=== PATIENT | male | born 1930 | race Caucasian/White ===

== ENCOUNTER 2022-10-13 14:18 | Emergency (ER) | payer MEDICARE ==
[2022-10-13] MEDS ORDERED: Sodium Chloride 0.9% 1,000 ML ONE ×2 (15:00→17:16)
[2022-10-13] MEDS ORDERED: Ondansetron PF 4 MG/2 ML Vial ONE (15:00)
[2022-10-13] MEDS ORDERED: Bisacodyl 10 MG SUPP ONE (15:00)
[2022-10-13] MEDS ORDERED: Morphine 4 MG/ML VIAL ONE ×2 (15:00→17:16)
[2022-10-13 15:16] LABS: #Basophils 0.1 thou/uL (0.0-0.2); #Monocytes 0.4 thou/uL (0.11-0.59); #Neutrophils 8.5 thou/uL (1.40-6.50); %Basophils 0.5 % (0.0-1.0); %Eosinophils 0.2 % (0.0-10.0); %Lymphocytes 9.5 % (21.0-51.0); %Monocytes 4.4 % (0.0-10.0); %Neutrophils 85.3 % (42.0-75.0); Hemoglobin 12.3 g/dL (14.0-18.0); Mean Corpuscular HGB CONC 31.8 g/dL (32.0-36.0); Mean Corpuscular Hemoglobin 26.8 pg (27.0-31.0); Mean Corpuscular Volume 84.3 fl (78.0-98.0); Mean Platelet Volume 7.8 fL (7.4-10.4); Platelet Count 295 10x3/uL (130-400); Red Blood Cell (RBC) Count 4.58 mill/uL (4.70-6.10)
[2022-10-13 15:31] LABS: ALT (SGPT) 26 U/L (8-55); AST (SGOT) 53 U/L (5-34); Albumin 3.2 g/dL (3.4-4.8); Alkaline Phosphatase 249 U/L (40-110); Anion Gap 17 mmol/L (10-20); BUN (Urea Nitrogen) 35 mg/dL (8.4-25.7); Bilirubin, Total 0.7 mg/dL (0.2-1.2); Calc. Creatinine Clearance 0 mL/min (70-130); Calcium 10.6 mg/dL (7.8-10.44); Carbon Dioxide 21 mmol/L (23-31); Chloride 104 mmol/L (98-107); Estimated GFR 40; Globulin 3.1 g/dL (2.4-3.5); Glucose 157 mg/dL (83-110); Lipase 79 U/L (8-78); Potassium 4.4 mmol/L (3.5-5.1); Protein, Total 6.3 g/dL (5.8-8.1); Sodium 138 mmol/L (136-145)
[2022-10-13] MEDS ORDERED: Mineral Oil ENEMA ONE ×2 (17:16→19:33)
[2022-10-13] MEDS ORDERED: Polyethylene Glycol 3350 17 GM Packet PO SCH (21:00)
== END 2022-10-13 23:00 | disposition home or self-care (01) ==
LOC: MADERS 14:18
DX: K59.00 Constipation, unspecified (principal); G89.3 Neoplasm related pain (acute) (chronic); C61 Malignant neoplasm of prostate; I25.10 Atherosclerotic heart disease of native coronary artery without angina pectoris; E03.9 Hypothyroidism, unspecified; E78.00 Pure hypercholesterolemia, unspecified; I10 Essential (primary) hypertension; Z79.899 Other long term (current) drug therapy; Z79.82 Long term (current) use of aspirin
CPT/HCPCS: 74176; 80053; 83690; 85025; 96361; 96374; 96375; 96376; J2270; J2405; J7050